=== PATIENT | female | born 1960 | race Native Hawaiian/Other Pacific Islander ===

== ENCOUNTER 2018-08-22 08:19 | Outpatient (CLI) | payer BC ==
[2018-08-22 08:58] LABS: PLATELET COUNT 392 K/uL (152-353)
== END 2018-08-22 22:44 | disposition home or self-care (01) ==
LOC: RAD 08:19
PROVIDERS: Podiatrist
DX: Z01.810 Encounter for preprocedural cardiovascular examination (principal); Z01.811 Encounter for preprocedural respiratory examination; Z01.812 Encounter for preprocedural laboratory examination
CPT/HCPCS: 36415; 80053; 85027; 93005

== ENCOUNTER 2021-10-15 10:28 | Outpatient (CLI) | payer BC | END 2021-10-15 19:08 | disposition home or self-care (01) | LOC: MAMMO 10:28 | PROVIDERS: ATTEND Registered Nurse | DX: Z12.31 Encounter for screening mammogram for malignant neoplasm of breast (principal) ==